=== PATIENT | male | born 1995 | race American Indian/Alaskan Native ===

== ENCOUNTER 2017-11-30 09:49 | Emergency (ER) | payer BC ==
[2017-11-30 10:00] VITALS: BP 152/91
--- NOTE | 2017-11-30 10:13 | Emergency Department Report ---
ED ENT HPI - General Chief complaint: Earache Stated complaint: EAR ACHE Time Seen by Provider: 11/30/17 10:03 Source: patient Mode of arrival: Ambulatory Limitations: No Limitations - History of Present Illness Initial comments: Patient is a 22-year-old male who is complaining of right ear pain. Patient's had some minor congestion for the last 2-3 days. Patient states she woke up tonight with an intense pain in the right side of his head. Patient denies any fever nausea vomiting at this time. He states the pain is 8 out of 10 in severity and throbbing. Consistency: constant Improves with: none Worsens with: none - Related Data Previous Rx's Medication Instructions Recorded Last Taken Type Amoxicillin/Potassium Clav 1 each PO BID #14 tablet 11/30/17 Unknown Rx [Augmentin 875-125 Tablet] Ibuprofen [Motrin] 800 mg PO Q8HR PRN #20 tablet 11/30/17 Unknown Rx traMADol [Ultram] 50 mg PO Q6HR PRN #12 tablet 11/30/17 Unknown Rx Allergies Allergy/AdvReac Type Severity Reaction Status Date / Time diphenhydramine Allergy Rash Verified 11/30/17 09:57 [From Benadryl] ED Dental HPI - General Chief complaint: Earache Stated complaint: EAR ACHE Time Seen by Provider: 11/30/17 10:03 Source: patient Mode of arrival: Ambulatory Limitations: No Limitations - Related Data Previous Rx's Medication Instructions Recorded Last Taken Type Amoxicillin/Potassium Clav 1 each PO BID #14 tablet 11/30/17 Unknown Rx [Augmentin 875-125 Tablet] Ibuprofen [Motrin] 800 mg PO Q8HR PRN #20 tablet 11/30/17 Unknown Rx traMADol [Ultram] 50 mg PO Q6HR PRN #12 tablet 11/30/17 Unknown Rx Allergies Allergy/AdvReac Type Severity Reaction Status Date / Time diphenhydramine Allergy Rash Verified 11/30/17 09:57 [From Benadryl] ED Review of Systems ROS: Stated complaint: EAR ACHE Other details as noted in HPI Comment: All other systems reviewed and negative ED Past Medical Hx - Past Medical History Previous Medical History?: No - Surgical History Past Surgical History?: No - Social History Smoking Status: Never Smoker Substance Use Type: None - Medications Home Medications: Home Medications Medication Instructions Recorded Confirmed Last Taken Type Amoxicillin/Potassium Clav 1 each PO BID #14 tablet 11/30/17 Unknown Rx [Augmentin 875-125 Tablet] Ibuprofen [Motrin] 800 mg PO Q8HR PRN #20 tablet 11/30/17 Unknown Rx traMADol [Ultram] 50 mg PO Q6HR PRN #12 tablet 11/30/17 Unknown Rx ED Physical Exam - General Limitations: No Limitations General appearance: alert, in no apparent distress - Head Head exam: Present: atraumatic, normocephalic - Eye Eye exam: Present: normal appearance - ENT ENT exam: Present: mucous membranes moist. Absent: TM's normal bilaterally ( patient's left ears within normal limits. The right external ear appears normal. He does have pain with movement of the right external ear. Patient's right TM is erythematous and dull and bulging.) - Neck Neck exam: Present: normal inspection - Respiratory Respiratory exam: Present: normal lung sounds bilaterally. Absent: respiratory distress - Cardiovascular Cardiovascular Exam: Present: regular rate, normal rhythm. Absent: systolic murmur, diastolic murmur, rubs, gallop - GI/Abdominal GI/Abdominal exam: Present: soft, normal bowel sounds - Rectal Rectal exam: Present: deferred - Extremities Exam Extremities exam: Present: normal inspection - Back Exam Back exam: Present: normal inspection - Neurological Exam Neurological exam: Present: alert, oriented X3 - Psychiatric Psychiatric exam: Present: normal affect, normal mood - Skin Skin exam: Present: warm, dry, intact, normal color. Absent: rash ED Course Vital Signs 11/30/17 09:57 Temperature 98.5 F Pulse Rate 70 Respiratory 18 Rate Blood Pressure 152/91 O2 Sat by Pulse 98 Oximetry ED Medical Decision Making - Medical Decision Making Patient diagnosed with otitis media. Patient be started on Augmentin and meds for symptomatic relief and the patient will be discharged home. Critical care attestation.: If time is entered above; I have spent that time in minutes in the direct care of this critically ill patient, excluding procedure time. ED Disposition Clinical Impression: Otitis media Qualifiers: Otitis media type: suppurative Chronicity: acute Laterality: right Recurrence: not specified as recurrent Spontaneous tympanic membrane rupture: without spontaneous rupture Qualified Code(s): H66.001 - Acute suppurative otitis media without spontaneous rupture of ear drum, right ear Disposition: - TO HOME OR SELFCARE Is pt being admited?: No Does the pt Need Aspirin: No Condition: Stable Instructions: Otitis Media (ED) Forms: Work/School Release Form(ED) Time of Disposition: 10:12
== END 2017-11-30 10:08 | disposition home or self-care (01) ==
LOC: ED 09:49
DX: H66.001 Acute suppurative otitis media without spontaneous rupture of ear drum, right ear (principal); Z88.8 Allergy status to other drugs, medicaments and biological substances
CPT/HCPCS: 99282